=== PATIENT | female | born 1950 | race Asian ===

== ENCOUNTER 2018-02-03 11:34 | Emergency (ER) | payer MEDICARE, OTHER ==
[~2018-02-03] VITALS: Ht 162.6 cm; Wt 61.4 kg
[~2018-02-03 11:34] MED LIST: METF500T6 PO
[2018-02-03] MEDS ORDERED: LINA5TAB PO (11:43)
[2018-02-03] MEDS ORDERED: LEVO88TA4 PO (11:43)
[2018-02-03] MEDS ORDERED: AMOX500C2 PO (11:43)
[2018-02-03] MEDS ORDERED: METF500T6 PO (11:43)
[2018-02-03] MEDS ORDERED: ESCI10TA PO (11:43)
[2018-02-03] MEDS ORDERED: DONE10TA8 PO (11:43)
[2018-02-03 11:49] LABS: GLUCOSE,POINT OF CARE 126 MG/DL (70-110)
[2018-02-03 12:51] VITALS: BP 145/85
== END 2018-02-03 13:02 | disposition home or self-care (01) ==
LOC: EDUNIT# 11:34 → EMS 11:36
DX: K08.89 Other specified disorders of teeth and supporting structures (principal); E03.9 Hypothyroidism, unspecified
CPT/HCPCS: 99283

== ENCOUNTER 2019-07-30 10:48 | Inpatient (IN) | payer MEDICARE, OTHER ==
[~2019-07-30] VITALS: Ht 162.6 cm; Wt 78.6 kg
[~2019-07-30 10:48] MED LIST changes: +AMOX500C2 PO; +DONE10TA8 PO; +ESCI10TA PO; +LEVO88TA4 PO; +LINA5TAB PO; +METF-960 PO; -METF500T6 PO
[2019-07-30] MEDS ORDERED: FOLI1 PO (11:08)
[2019-07-30] MEDS ORDERED: LINA5TAB PO (11:08)
[2019-07-30] MEDS ORDERED: LEVO88TA PO (11:08)
[2019-07-30] MEDS ORDERED: METF-960 PO (11:08)
[2019-07-30 11:38] LABS: BASOPHILS % (AUTO) 0.3 % (0.0-2.0); EOSINOPHILS % (AUTO) 3.6 % (1.0-6.0); HEMATOCRIT 35.2 % (36-46); HEMOGLOBIN 11.9 g/dL (12.0-16.0); LYMPHOCYTES # (AUTO) 1.3 K/uL (1.0-4.8); LYMPHOCYTES % (AUTO) 13.1 % (22.0-44.0); MEAN CORPUSCULAR HEMOGLOBIN 31.1 pg (26.0-34.0); MEAN CORPUSCULAR HGB CONC 33.9 G/dL (31.0-37.0); MEAN CORPUSCULAR VOLUME 92 fL (80-100); MONOCYTES # (AUTO) 0.4 K/uL (0.1-1.0); MONOCYTES % (AUTO) 4.2 % (2.0-9.0); NEUTROPHILS # (AUTO) 7.6 K/uL (1.8-7.7); NEUTROPHILS % (AUTO) 78.8 % (40.0-70.0); PLATELET COUNT (AUTO) 177 K/uL (150-450); RED BLOOD CELL COUNT(AUTO) 3.83 MIL/uL (4.00-5.20); RED CELL DISTRIBUTION WIDTH 13.9 % (11.5-14.5)
[2019-07-30 11:47] LABS: CALCIUM, TOTAL 8.7 mg/dL (8.8-10.5); CREATININE 3.83 mg/dL (0.60-1.30); POTASSIUM 4.4 mmol/L (3.5-5.1)
[2019-07-30 11:53] LABS: BILIRUBIN,TOTAL 0.9 mg/dL (0.1-1.0); TOTAL PROTEIN, SERUM 7.2 g/dL (6.4-8.2)
[2019-07-30 12:36] LABS: APPEARANCE,URINE CLOUDY (CLEAR); BILIRUBIN,URINE NEGATIVE (NEGATIVE); GLUCOSE, URINE (UA) NEGATIVE (NEGATIVE); KETONES,URINE NEGATIVE (NEGATIVE); LEUKOCYTE ESTERASE ,URINE SMALL (NEGATIVE); NITRATE,URINE NEGATIVE (NEGATIVE); OCCULT BLOOD,URINE LARGE (NEGATIVE); PROTEIN,URINE TRACE (NEGATIVE); UROBILINOGEN,URINE 0.2 mg/dL (<=1.0)
[2019-07-30 13:05] LABS: BACTERIA,URINE None Seen /HPF (None Seen); RBC,URINE >100 /HPF (0-2); SQUAMOUS EPITHELIAL CELL,UR Few /LPF (None Seen)
[2019-07-30] MEDS ORDERED: BISACODYL 10 MG RECTAL RECTAL SUPPOSITORY PR PRN (13:45)
[2019-07-30] MEDS ORDERED: DEXTROSE 50%-WATER 25 GM/50 ML SYRINGE IVP PRN (13:45)
[2019-07-30] MEDS ORDERED: ACETAMINOPHEN 325 MG TABLET PO PRN (13:45)
[2019-07-30 14:16] LABS: THYROID STIMULATING HORMONE 4.27 uIU/mL (0.36-3.74)
[2019-07-30] MEDS: CefTRIAXone 1 GM/DEXTROSE 50 ML IV SCH (14:34)
[2019-07-30] MEDS: TAMSULOSIN HCL 0.4 MG CAPSULE PO SCH ×2 (14:34→20:37)
[2019-07-30 17:23] VITALS: BP 117/73
[2019-07-30 18:04] LABS: GLUCOMETER DEV NAME(LOC) 4E.2; GLUCOSE,POINT OF CARE 132 MG/DL (70-110)
[2019-07-30 20:08] VITALS: BP 129/74
[2019-07-30] MEDS: HEPARIN SODIUM,PORCINE 5,000 UNITS/ML VIAL SQ SCH (20:37)
[2019-07-30] MEDS: DOCUSATE SODIUM 100 MG CAPSULE PO SCH (20:37)
[2019-07-30] MEDS: INSULIN LISPRO 100 UNITS/ML SQ PRN (20:41)
[2019-07-30 23:15] VITALS: BP 116/64
[2019-07-31 03:25] VITALS: BP 103/56
[2019-07-31] MEDS: INSULIN LISPRO 100 UNITS/ML SQ PRN ×4 (05:31→21:09)
[2019-07-31 06:41] LABS: CALCIUM, TOTAL 9.2 mg/dL (8.8-10.5); CREATININE 2.51 mg/dL (0.60-1.30); MAGNESIUM 2.3 mg/dL (1.80-2.40); PHOSPHORUS 4.1 mg/dL (2.5-4.9); POTASSIUM 3.8 mmol/L (3.5-5.1); THYROID STIMULATING HORMONE 2.03 uIU/mL (0.36-3.74)
[2019-07-31 07:35] VITALS: BP 90/61
[2019-07-31] MEDS ORDERED: SODIUM CHLORIDE 0.9% 0 ML IV ONE (08:40)
[2019-07-31] MEDS: TAMSULOSIN HCL 0.4 MG CAPSULE PO SCH ×2 (08:44→21:01)
[2019-07-31] MEDS: DOCUSATE SODIUM 100 MG CAPSULE PO SCH ×2 (08:44→21:01)
[2019-07-31] MEDS: HEPARIN SODIUM,PORCINE 5,000 UNITS/ML VIAL SQ SCH ×2 (08:44→21:01)
[2019-07-31 08:53] LABS: GLUCOMETER DEV NAME(LOC) 6N.2; GLUCOSE,POINT OF CARE 241 MG/DL (70-110)
[2019-07-31 08:54] LABS: GLUCOMETER DEV NAME(LOC) 6N.2; GLUCOSE,POINT OF CARE 209 MG/DL (70-110)
[2019-07-31] MEDS: SODIUM CHLORIDE 0.45% 1,000 ML IV SCH (09:46)
[2019-07-31 11:40] VITALS: BP_SYST 100; BP_SYST 129; BP_DIAS 59; BP_DIAS 67
[2019-07-31] MEDS: CefTRIAXone 1 GM/DEXTROSE 50 ML IV SCH (13:47)
[2019-07-31 15:40] VITALS: BP 129/67
[2019-07-31 16:14] LABS: GLUCOMETER DEV NAME(LOC) 6N.2; GLUCOSE,POINT OF CARE 215 MG/DL (70-110)
[2019-07-31 17:40] LABS: GLUCOMETER DEV NAME(LOC) 6N.2; GLUCOSE,POINT OF CARE 173 MG/DL (70-110)
[2019-07-31 20:14] VITALS: BP 136/68
[2019-07-31 21:42] LABS: GLUCOMETER DEV NAME(LOC) 4E.2; GLUCOSE,POINT OF CARE 181 MG/DL (70-110)
[2019-08-01] MEDS: SODIUM CHLORIDE 0.45% 1,000 ML IV SCH ×2 (01:40→14:08)
[2019-08-01 04:00] VITALS: BP 133/66
[2019-08-01 06:29] LABS: GLUCOMETER DEV NAME(LOC) 4E.2; GLUCOSE,POINT OF CARE 133 MG/DL (70-110)
[2019-08-01 06:53] LABS: CALCIUM, TOTAL 8.6 mg/dL (8.8-10.5); CREATININE 1.76 mg/dL (0.60-1.30); MAGNESIUM 1.9 mg/dL (1.80-2.40); PHOSPHORUS 3.4 mg/dL (2.5-4.9); POTASSIUM 3.6 mmol/L (3.5-5.1)
[2019-08-01 08:37] VITALS: BP 119/61
[2019-08-01] MEDS: DOCUSATE SODIUM 100 MG CAPSULE PO SCH ×2 (08:53→20:14)
[2019-08-01] MEDS: TAMSULOSIN HCL 0.4 MG CAPSULE PO SCH ×2 (08:54→20:14)
[2019-08-01] MEDS: HEPARIN SODIUM,PORCINE 5,000 UNITS/ML VIAL SQ SCH ×2 (08:54→20:17)
[2019-08-01 11:11] VITALS: BP 128/74
[2019-08-01] MEDS: INSULIN LISPRO 100 UNITS/ML SQ PRN ×3 (12:25→21:32)
[2019-08-01] MEDS: CefTRIAXone 1 GM/DEXTROSE 50 ML IV SCH (14:06)
[2019-08-01 15:02] VITALS: BP 141/89
[2019-08-01 17:45] LABS: GLUCOMETER DEV NAME(LOC) 6N.2; GLUCOSE,POINT OF CARE 168 MG/DL (70-110)
[2019-08-01 19:00] VITALS: BP 141/94
[2019-08-01 22:14] LABS: GLUCOMETER DEV NAME(LOC) 4E.2; GLUCOSE,POINT OF CARE 171 MG/DL (70-110)
[2019-08-01 22:15] LABS: GLUCOMETER DEV NAME(LOC) 4E.2; GLUCOSE,POINT OF CARE 219 MG/DL (70-110)
[2019-08-02 00:33] VITALS: BP 139/84
[2019-08-02] MEDS: SODIUM CHLORIDE 0.45% 1,000 ML IV SCH (03:54)
[2019-08-02 04:00] VITALS: BP 146/86
[2019-08-02] MEDS: INSULIN LISPRO 100 UNITS/ML SQ PRN ×2 (06:39→12:00)
[2019-08-02 08:23] LABS: CALCIUM, TOTAL 8.6 mg/dL (8.8-10.5); CREATININE 1.41 mg/dL (0.60-1.30); POTASSIUM 3.5 mmol/L (3.5-5.1)
[2019-08-02] MEDS: DOCUSATE SODIUM 100 MG CAPSULE PO SCH (09:40)
[2019-08-02] MEDS: TAMSULOSIN HCL 0.4 MG CAPSULE PO SCH (09:40)
[2019-08-02] MEDS: HEPARIN SODIUM,PORCINE 5,000 UNITS/ML VIAL SQ SCH (09:41)
[2019-08-02] MEDS ORDERED: TAMS-13 PO (10:07)
[2019-08-02] MEDS: CefTRIAXone 1 GM/DEXTROSE 50 ML IV SCH (14:00)
[2019-08-02 18:52] LABS: GLUCOMETER DEV NAME(LOC) 4E.2; GLUCOSE,POINT OF CARE 141 MG/DL (70-110)
[2019-08-02 18:52] LABS: GLUCOMETER DEV NAME(LOC) 4E.2; GLUCOSE,POINT OF CARE 160 MG/DL (70-110)
== END 2019-08-02 15:04 | disposition home or self-care (01) | DRG 699 ==
LOC: EMS 10:53 → 4E 16:24
PROVIDERS: ADMIT Internal Medicine; ATTEND Internal Medicine
DX: N13.9 Obstructive and reflux uropathy, unspecified (principal); N17.9 Acute kidney failure, unspecified; N39.0 Urinary tract infection, site not specified; R33.9 Retention of urine, unspecified; E03.9 Hypothyroidism, unspecified; D64.9 Anemia, unspecified; F03.90 Unspecified dementia, unspecified severity, without behavioral disturbance, psychotic disturbance, mood disturbance, and anxiety; N18.9 Chronic kidney disease, unspecified; E11.22 Type 2 diabetes mellitus with diabetic chronic kidney disease; Z79.84 Long term (current) use of oral hypoglycemic drugs
CPT/HCPCS: 51702; 76700; 83735; 84100; 84443; 87086; 97116; 97162; 97530; G0378; J0696; J1644; J7040

== ENCOUNTER 2019-10-19 16:26 | Emergency (ER) | payer OTHER ==
[~2019-10-19] VITALS: Ht 165.1 cm; Wt 70.5 kg
[~2019-10-19 16:26] MED LIST changes: -AMOX500C2 PO; -DONE10TA8 PO; -ESCI10TA PO; +LEVO88TA PO; -LEVO88TA4 PO; -LINA5TAB PO; +TAMS-13 PO
[2019-10-19 17:58] LABS: BASOPHILS % (AUTO) 0.4 % (0.0-2.0); EOSINOPHILS % (AUTO) 0.8 % (1.0-6.0); HEMATOCRIT 38.6 % (36-46); HEMOGLOBIN 13.1 g/dL (12.0-16.0); LYMPHOCYTES # (AUTO) 3.2 K/uL (1.0-4.8); LYMPHOCYTES % (AUTO) 22.1 % (22.0-44.0); MEAN CORPUSCULAR HEMOGLOBIN 30.9 pg (26.0-34.0); MEAN CORPUSCULAR HGB CONC 33.9 G/dL (31.0-37.0); MEAN CORPUSCULAR VOLUME 91 fL (80-100); MONOCYTES # (AUTO) 0.7 K/uL (0.1-1.0); MONOCYTES % (AUTO) 4.9 % (2.0-9.0); NEUTROPHILS # (AUTO) 10.4 K/uL (1.8-7.7); NEUTROPHILS % (AUTO) 71.8 % (40.0-70.0); PLATELET COUNT (AUTO) 211 K/uL (150-450); RED BLOOD CELL COUNT(AUTO) 4.23 MIL/uL (4.00-5.20); RED CELL DISTRIBUTION WIDTH 13.8 % (11.5-14.5)
[2019-10-19] MEDS ORDERED: MULT1CAP32 PO (17:59)
[2019-10-19] MEDS ORDERED: FOLI1 PO (17:59)
[2019-10-19] MEDS ORDERED: DONE10TA8 PO (17:59)
[2019-10-19 18:09] LABS: CALCIUM, TOTAL 9.9 mg/dL (8.8-10.5); CREATININE 1.23 mg/dL (0.60-1.30); POTASSIUM 4.2 mmol/L (3.5-5.1)
[2019-10-19 18:10] LABS: PROTHROMBIN TIME 9.9 SEC (9.4-11.6)
[2019-10-19 18:15] LABS: ALBUMIN 2.9 g/dL (3.4-5.0); BILIRUBIN,TOTAL 0.2 mg/dL (0.1-1.0); TOTAL PROTEIN, SERUM 7.4 g/dL (6.4-8.2)
[2019-10-19] MEDS ORDERED: SODIUM CHLORIDE 0.9% 1,000 ML IV ONE (19:45)
[2019-10-19 21:10] LABS: APPEARANCE,URINE CLOUDY (CLEAR); BILIRUBIN,URINE NEGATIVE (NEGATIVE); GLUCOSE, URINE (UA) NEGATIVE (NEGATIVE); KETONES,URINE NEGATIVE (NEGATIVE); LEUKOCYTE ESTERASE ,URINE LARGE (NEGATIVE); NITRATE,URINE NEGATIVE (NEGATIVE); OCCULT BLOOD,URINE MODERATE (NEGATIVE); PROTEIN,URINE NEGATIVE (NEGATIVE); UROBILINOGEN,URINE 0.2 mg/dL (<=1.0)
[2019-10-19] MEDS ORDERED: CEPHALEXIN MONOHYDRATE 500 MG CAPSULE PO ONE (21:30)
[2019-10-19] MEDS ORDERED: CEPHALEXIN MONOHYDRATE 250 MG/5 ML SUSPENSION ORAL.SYG PO ONE (21:30)
[2019-10-19 21:31] VITALS: BP 158/93
[2019-10-19 21:32] LABS: BACTERIA,URINE Many /HPF (None Seen); RBC,URINE 0-2 /HPF (0-2); SQUAMOUS EPITHELIAL CELL,UR Rare /LPF (None Seen)
== END 2019-10-19 22:18 | disposition home or self-care (01) ==
LOC: EMS 16:26
DX: N39.0 Urinary tract infection, site not specified (principal); R06.02 Shortness of breath; E03.9 Hypothyroidism, unspecified; Z79.84 Long term (current) use of oral hypoglycemic drugs
CPT/HCPCS: 36415; 71045; 80053; 81001; 83690; 83880; 84484; 85025; 85610; 87077; 87086; 93005; 99285; J7030